=== PATIENT | female | born 2000 | race Two or more races ===

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

== ENCOUNTER 2022-01-10 20:13 | Observation (INO) | payer MEDICAID ==
[~2022-01-10] VITALS: Ht 167.6 cm; Wt 82.6 kg
[~2022-01-10 20:13] MED LIST: PREN-96 PO
[2022-01-10] MEDS ORDERED: LACTATED RINGER'S 1,000 ML IV ONE (21:15)
[2022-01-10] MEDS ORDERED: LACTATED RINGER'S 1,000 ML IV SCH (21:30)
[2022-01-10] MEDS ORDERED: TERBUTALINE SULFATE 1 MG/ML 1ML VIAL SC SCH (22:15)
[2022-01-10] MEDS ORDERED: NIFEdipine 10 MG CAP PO ONE (22:30)
== END 2022-01-11 01:09 | disposition home or self-care (01) ==
LOC: LDRP 20:13
PROVIDERS: ADMIT Obstetrics & Gynecology; ATTEND Obstetrics & Gynecology
DX: O60.03 Preterm labor without delivery, third trimester (principal); O62.9 Abnormality of forces of labor, unspecified; O26.893 Other specified pregnancy related conditions, third trimester; R10.30 Lower abdominal pain, unspecified; M79.606 Pain in leg, unspecified; Z3A.36 36 weeks gestation of pregnancy
CPT/HCPCS: 59025; 81002; 94760; 96360; 96361; 96372; G0378

== ENCOUNTER 2022-01-16 18:36 | Inpatient (IN) | payer MEDICAID ==
[~2022-01-16] VITALS: Ht 167.6 cm; Wt 82.6 kg
[2022-01-16] MEDS ORDERED: AMMONIA 0.33 ML INHALANT IN PRN (20:00)
[2022-01-16] MEDS ORDERED: LACTATED RINGER'S 1,000 ML IV SCH (20:15)
[2022-01-16] MEDS ORDERED: PROMETHAZINE HCL 25 MG/ML 1ML IV PRN (20:15)
[2022-01-16] MEDS ORDERED: BUTORPHANOL TARTRATE 2 MG/1 ML VIAL IV PRN ×2 (20:15)
[2022-01-16] MEDS ORDERED: LIDOCAINE 2%HCL (LOCAL ANESTH.) INJ 10ml MDV IJ PRN (20:15)
[2022-01-16] MEDS ORDERED: PHISODERM TOP SOLN 240ML BTL TOP PRN (20:15)
[2022-01-16] MEDS ORDERED: AMMONIA 0.33 ML INHALANT IN ONE (20:50)
[2022-01-16 21:04] LABS: Basophils # (auto) 0.1 10 ^3/uL (0-0.2); Monocytes # (auto) 0.8 10 ^3/uL (0-1.3)
[2022-01-16 21:05] LABS: Basophils % (auto) 0.6 % (0.0-2.0); Eosinophils # (auto) 0.1 10 ^3/uL (0-0.8); Eosinophils % (auto) 0.4 % (0.0-7.0); Hematocrit 34.1 % (36.0-46.0); Hemoglobin 11.9 g/dL (12.2-16.2); Lymphocytes # (auto) 2.4 10 ^3/uL (0.4-5.4); Lymphocytes % (auto) 16.9 % (10.0-50.0); Mean Corpuscular Hemoglobin 27.1 pg (28.0-32.0); Mean Corpuscular Hgb Conc. 34.9 g/dL (32.0-36.0); Mean Corpuscular Volume 77.6 fL (80.0-100.0); Monocytes % (auto) 5.9 % (0.0-12.0); Neutrophils % (auto) 76.2 % (37.0-80.0); Nucleated Red Blood Cells % 0.1 %; Red Cell Distribution Width 13.1 % (11.8-14.3); White Blood Cell 14.4 10^3/uL (4.4-10.8)
[2022-01-16 21:23] LABS: Albumin 2.8 g/dL (3.4-5.0); BUN/Creatinine Ratio 21.4; Calcium 8.7 mg/dL (8.5-10.1)
[2022-01-16 21:26] LABS: Bilirubin, Total 0.4 mg/dL (0.2-1.0); Total Protein 6.8 g/dL (6.4-8.2)
[2022-01-16 21:29] LABS: INR 0.91 (0.9-1.15); Partial Thromboplastin Time 25.3 sec (23.6-33.0)
[2022-01-16 21:54] LABS: Urine Bacteria NONE SEEN /hpf (None Seen); Urine Blood Negative /uL (Negative); Urine Specific Gravity 1.031 (1.001-1.035); Urine WBC 3 /hpf (0 - 5)
[2022-01-16 22:02] LABS: Amphetamine Screen, Urine NEGATIVE (NEGATIVE); Barbiturate Scree,Urine NEGATIVE (NEGATIVE); Benzodiazephine Screen, Urine NEGATIVE (NEGATIVE); Cannabinoid Screen, Urine NEGATIVE (NEGATIVE); Cocaine Screen, Urine NEGATIVE (NEGATIVE); Opiate Scree,Urine NEGATIVE (NEGATIVE); Phencyclidine Screen, Urine NEGATIVE (NEGATIVE)
[2022-01-16] MEDS ORDERED: LACT. RINGERS/OXYTOCIN 20UNITS 500 ML IV ONE ×2 (22:15→22:45)
[2022-01-16] MEDS ORDERED: ceFAZolin 1GM/50ML 50 ML IV ONE (22:15)
[2022-01-17] MEDS ORDERED: METHYLERGONOVINE MALEATE 0.2 MG/ML AMP IM ONE (00:57)
[2022-01-17] MEDS ORDERED: ONDANSETRON ODT 4 MG TAB PO PRN (01:15)
[2022-01-17] MEDS: IBUPROFEN 600 MG TAB PO PRN ×3 (01:36→21:55)
[2022-01-17] MEDS: WITCH HAZEL-GLYCERIN PAD TOP PRN ×2 (02:01→18:07)
[2022-01-17] MEDS: DERMOPLAST 60ML BOTTLE TOP PRN ×2 (02:01→18:07)
[2022-01-17] MEDS ORDERED: IBUPROFEN 800 MG TAB PO SCH (06:00)
[2022-01-17] MEDS: ceFAZolin 1GM/50ML 50 ML IV SCH ×3 (06:45→21:54)
[2022-01-17] MEDS: ACETAMINOPHEN 325 MG TAB PO PRN ×2 (06:47→17:46)
[2022-01-17 07:00] VITALS: BP 98/54
[2022-01-17 11:30] VITALS: BP 113/58
[2022-01-17 14:30] VITALS: BP 111/52
[2022-01-17 19:00] VITALS: BP 103/52
[2022-01-17] MEDS ORDERED: DOCUSATE SOD 100 MG CAP PO SCH (22:00)
[2022-01-17 22:53] VITALS: BP 108/62
[2022-01-18 03:00] VITALS: BP 95/50
[2022-01-18] MEDS: IBUPROFEN 600 MG TAB PO PRN (04:20)
[2022-01-18 05:10] LABS: RPR Non Reactive (Non Reactive)
[2022-01-18 07:00] VITALS: BP 118/70
[2022-01-18 11:00] VITALS: BP 107/58
== END 2022-01-18 13:37 | disposition home or self-care (01) | DRG 560 ==
LOC: LDRP 18:36 → INTOOBSV 18:36 → UNDOADMOB 18:36 → OBSVTOIN 18:36 → LDRP 20:13 → UNDODISIN 01-18 13:37 → EDSTATUS 01-27 08:44
PROVIDERS: ADMIT Obstetrics & Gynecology; ATTEND Obstetrics & Gynecology
PROC: 10E0XZZ Delivery of Products of Conception, External Approach (ICD-10-PCS; principal; 2022-01-17)
PROC: 0UQMXZZ Repair Vulva, External Approach (ICD-10-PCS; 2022-01-17)
DX: O42.92 Full-term premature rupture of membranes, unspecified as to length of time between rupture and onset of labor (principal); Z37.0 Single live birth; O71.82 Other specified trauma to perineum and vulva; Z20.822 Contact with and (suspected) exposure to COVID-19; Z3A.37 37 weeks gestation of pregnancy
CPT/HCPCS: 36415; 59025; 59409; 80053; 80307; 81001; 81002; 84112; 85025; 85610; 85730; 86592; 86850; 86900; 86901; 94760; 94762; 96360; 96361; 96365; 96366; 96372; G0378; J0690; J2001; J2590